=== PATIENT | male | born 1990 | race Caucasian/White ===

== ENCOUNTER 2019-08-16 18:58 | Emergency (ER) | payer OTHER, SELFPAY ==
[2019-08-16 19:52] VITALS: BP 135/91; PULSE 83; RESP 20; TEMP 36.9; O2SAT 100
--- NOTE | 2019-08-16 20:08 | ED.GENADULT ---
HPI - General Adult General Chief complaint: Abdominal Pain Stated complaint: abdominal pain/nausea/Vomiting Time Seen by Provider: 08/16/19 20:08 Source: patient Mode of arrival: ambulatory Limitations: no limitations History of Present Illness HPI narrative: 28-year-old male patient presents to the [facility] with complaints of abdominal pain for the past 2 weeks that started in the umbilical area and is gotten worse the past 3 days it has radiated to the right lower quadrant. Patient states he has had a little bit of nausea but denies any fevers, vomiting or diarrhea. Related Data Allergies Allergy/AdvReac Type Severity Reaction Status Date / Time Sulfa (Sulfonamide AdvReac Hives Verified 08/16/19 19:50 Antibiotics) Review of Systems Review of Systems: Narrative: CONSTITUTIONAL: Denies fever, chills, or sweats. EYES: Denies visual changes, redness, or discharge. ENT: Denies rhinorrhea, congestion, sore throat, or otalgia. CARDIOVASCULAR: Denies chest pain, palpitations, or edema. RESPIRATORY: Denies cough or dyspnea. GASTROINTESTINAL: Positive abdominal pain, nausea, denies vomiting, or diarrhea. GENITOURINARY: Denies dysuria or hematuria. SKIN: Denies rash or itching. MUSCULOSKELETAL: Denies back pain, joint pain, or myalgia. NEUROLOGIC: Denies headache, numbness, or weakness. PSYCHIATRIC: Denies anxiety or depression. PMFSH Comments At the time of my signature I agree with nursing past medical history, surgical, social, and family history. There is no relevant family history pertinent to the presenting complaint. Exam Narrative: Exam Narrative: GENERAL: Well-appearing, well-nourished, and in no acute distress. HEAD: Normocephalic, atraumatic. EYES: PERRLA and EOMI. ENT: Nares clear, no rhinorrhea or epistaxis. Mucous membranes moist. NECK: Supple. No lymphadenopathy CHEST: Clear to auscultation. No respiratory distress. HEART: Regular rate and rhythm. No murmur heard. Normal peripheral pulses. ABDOMEN: Soft, flat, nondistended. guarding, and right lower quadrant rebound tenderness, no rigid. Tenderness noted to right upper quadrant and right lower quadrant on palpation no pulsatilla masses. Bowel sounds present in all four quadrants. No organomegaly. Negative Herrera?s sign. No periumbicial tenderness. No Supra public tenderness or distension. Good femoral pulses bilaterally. No hernia noted. No scars or surface trauma. EXTREMITIES: Normal range of motion. No edema. SKIN: Warm, dry, no rash. NEURO: No focal deficits. Alert and oriented x3. Course Vital Signs Vital signs: Vital Signs Temperature 36.9 C 08/16/19 19:52 Pulse Rate 83 08/16/19 19:52 Respiratory Rate 20 08/16/19 19:52 Blood Pressure 135/91 H 08/16/19 19:52 Pulse Oximetry 100 08/16/19 19:52 Temperature 36.9 C 08/16/19 19:52 Pulse Rate 83 08/16/19 19:52 Respiratory Rate 20 08/16/19 19:52 Blood Pressure 135/91 H 08/16/19 19:52 Pulse Oximetry 100 08/16/19 19:52 Vital signs reviewed. The patient has been informed that they may have pre-hypertension or Hypertension based on a BP reading in the department. I recommend that the patient call the primary care provider listed on their discharge instructions or a physician of their choice this week to arrange follow up for further evaluation of possible pre-hypertension or Hypertension Transfer Transfered to: [facility]) Transportation: Other (Private vehicle with ) Transfer rationale: Right lower quadrant abdominal pain Accepting physician: Dr. muñoz Transfer comments: Called and spoke with JATINDRE Ahn at the [facility] at the [facility] emergency department gave her report on patient that we are sending over with complaints of 2 weeks of abdominal pain is gotten worse over the last 3 days does have tenderness to the right lower quadrant as well as right upper quadrant. Concerns for possible appendicitis and worsening over for further evaluation. Eduard is aware of the plan of
== END 2019-08-16 20:19 | disposition short-term general hospital (02) ==
PROVIDERS: Emergency Provider Nurse Practitioner Family
DX: R10.31 Right lower quadrant pain (principal); R10.11 Right upper quadrant pain; J44.9 Chronic obstructive pulmonary disease, unspecified; Z86.19 Personal history of other infectious and parasitic diseases
CPT/HCPCS: 99211; G0463

== ENCOUNTER 2019-08-30 19:37 | Emergency (ER) | payer OTHER, SELFPAY ==
[2019-08-30 20:18] VITALS: BP 136/81; PULSE 89; RESP 20; TEMP 36.7; O2SAT 98
--- NOTE | 2019-08-30 20:36 | ED.SKABFB ---
HPI - Skin/Abscess/Foreign Bdy General Chief complaint: Skin/Abscess/Foreign Body Stated complaint: Rash Time Seen by Provider: 08/30/19 20:36 Source: patient, family and RN notes reviewed Mode of arrival: ambulatory Limitations: no limitations History of Present Illness HPI narrative: 28-year-old male accompanied by with complaints of hives noted to torso last pm with itching starting this morning to rash. Red circular irregular shaped red rash noted which blanches noted to torso which is itchy. Patient states that he took a new allergy pill he got from [employer] prior to rash starting and he was recently started on Wellbutrin a little over a week ago. states that she has changed laundry soap recently but no other new soaps or lotions. Patient states that he has taken Benadryl for the itching, denies any shortness of breath or any difficulty with his swallowing. clear liquids for the next 8-10 hours, then MD complaint: rash Onset (ago): day(s) (2) Location: chest Severity: moderate Quality: pruritic Relieving factors: none Exacerbating factors: movement Context: new medication and other (laundry soap) Associated symptoms: denies other symptoms Treatments prior to arrival: Benadryl Related Data Allergies Allergy/AdvReac Type Severity Reaction Status Date / Time Sulfa (Sulfonamide Allergy Hives Verified 08/30/19 20:24 Antibiotics) haloperidol [From Haldol] AdvReac Unknown Verified 08/30/19 20:25 Review of Systems Review of Systems: Narrative: CONSTITUTIONAL: Denies fever, chills, or sweats. EYES: Denies visual changes, redness, or discharge. ENT: Denies rhinorrhea, congestion, sore throat, or otalgia. CARDIOVASCULAR: Denies chest pain, palpitations, or edema. RESPIRATORY: Denies cough or dyspnea. GASTROINTESTINAL: Denies abdominal pain, nausea, vomiting, or diarrhea. GENITOURINARY: Denies dysuria or hematuria. SKIN: Positive urticaria rash to torso of various sizes, does alaina. itching present to rash, no difficulty with breathing or any problems with swallowing MUSCULOSKELETAL: Denies back pain, joint pain, or myalgia. NEUROLOGIC: Denies headache, numbness, or weakness. PSYCHIATRIC: Denies anxiety or depression. All systems reviewed & are unremarkable except as noted in HPI and below PMFSH Past Medical History Medical History (Updated 09/03/19 @ 19:50 by Brittany Munoz NP) Anxiety Hypertension Reactive airway disease Staph infection Social History Social History (Updated 09/03/19 @ 19:46 by Brittany Munoz NP) Smoking status: Unknown if ever smoked Living arrangements: with family Gender identity (if verbalized by the patient): Male Comments At time of signature, agree with nursing past medical,social history. There is no relevant family history pertinent to the presenting complaint Exam Narrative: Exam Narrative: GENERAL: Well-appearing, well-nourished, and in no acute distress. HEAD: Normocephalic, atraumatic. EYES: PERRLA and EOMI. ENT: Nares clear, no rhinorrhea or epistaxis. Mucous membranes moist.TM's normal with good light reflex, throat pink with no swelling uvula midline NECK: Supple. no lymphadenopathy CHEST: Clear to auscultation. No respiratory distress.SAO2 98% on room air HEART: Regular rate and rhythm. No murmur heard. Normal peripheral pulses. ABDOMEN: Soft, non tender, non distended, normal active bowel sounds. EXTREMITIES: Normal range of motion. No edema. SKIN: Warm, dry, red circular rash to torso, rash lesions of various sizes, urticaria does akira, itchy NEURO: No focal deficits. Alert and oriented x3. Course Vital Signs Vital signs: Vital Signs Temperature 36.7 C 08/30/19 20:18 Pulse Rate 89 08/30/19 20:18 Respiratory Rate 20 08/30/19 20:18 Blood Pressure 136/81 08/30/19 20:18 Pulse Oximetry 98 08/30/19 20:18 Temperature 36.7 C 08/30/19 20:18 Pulse Rate 89 08/30/19 20:18 Respiratory Rate 20 08/30/19 20:18 Blood Pressure 136/8
== END 2019-08-30 20:48 | disposition home or self-care (01) ==
PROVIDERS: Emergency Provider Registered Nurse
DX: L50.9 Urticaria, unspecified (principal); L25.9 Unspecified contact dermatitis, unspecified cause; I10 Essential (primary) hypertension; J45.909 Unspecified asthma, uncomplicated; Z86.19 Personal history of other infectious and parasitic diseases
CPT/HCPCS: 99213; G0463

== ENCOUNTER 2019-09-10 15:07 | Emergency (ER) | payer OTHER, SELFPAY ==
[2019-09-10 15:23] VITALS: BP 123/87; PULSE 101; RESP 16; TEMP 36.1; O2SAT 100
--- NOTE | 2019-09-10 15:27 | ED.SKABFB ---
HPI - Skin/Abscess/Foreign Bdy General Stated complaint: Hives Time Seen by Provider: 09/10/19 15:27 Source: patient and RN notes reviewed History of Present Illness HPI narrative: Patient is a 29-year-old male that presents the urgent care with complaints of a rash to the abdomen and bilateral arms. Patient states that he was seen here a week and a half ago and placed on steroids and given a steroid cream. Patient states he has been using them as directed and completed the steroid. Patient states approximately 3 days after the steroid was completed, yesterday he noticed a fine rash returned. Patient states he is now that down the one drug and believes that the Wellbutrin. Patient states he started 3 weeks ago. Patient did follow-up with his PCP and he will again follow-up after this visit. Patient states has been taking Benadryl since yesterday. No other acute complaints. No acute distress noted. Patient aware of the plan of care. Related Data Allergies Allergy/AdvReac Type Severity Reaction Status Date / Time Sulfa (Sulfonamide Allergy Hives Verified 09/10/19 15:39 Antibiotics) haloperidol [From Haldol] AdvReac Unknown Verified 09/10/19 15:39 Review of Systems Review of Systems: Narrative: CONSTITUTIONAL: Denies fever, chills, or sweats. EYES: Denies visual changes, redness, or discharge. ENT: Denies rhinorrhea, congestion, sore throat, or otalgia. CARDIOVASCULAR: Denies chest pain, palpitations, or edema. RESPIRATORY: Denies cough or dyspnea. GASTROINTESTINAL: Denies abdominal pain, nausea, vomiting, or diarrhea. GENITOURINARY: Denies dysuria or hematuria. SKIN: Reports of an itchy fine rash to the abdomen and bilateral arms MUSCULOSKELETAL: Denies back pain, joint pain, or myalgia. NEUROLOGIC: Denies headache, numbness, or weakness. All other systems reviewed are negative, except as documented in HPI. [facility] Past Medical History Medical History (Updated 09/10/19 @ 15:44 by LANA Li) Anxiety Hypertension Reactive airway disease Staph infection Social History Social History (Updated 09/03/19 @ 19:46 by Brittany Munoz NP) Smoking status: Unknown if ever smoked Gender identity (if verbalized by the patient): Male Comments At the time of my signature, I reviewed and agree with the nursing past medical, surgical, social, and family history. There is no relevant family history pertinent to the patient complaint. Exam Narrative: Exam Narrative: GENERAL: This is a well-nourished, well-developed patient, in no apparent distress. HEAD: normocephalic, atraumatic. EYES: PERRL. Sclera clear/white. Vision is grossly intact. EARS: External ears normal NOSE: External nose normal with no obvious nasal discharge THROAT: Mucous membranes moist NECK: Neck supple CARDIOVASCULAR: Regular rate and rhythm without murmurs, gallops, or rubs. RESPIRATORY: Clear to auscultation. Breath sounds equal bilaterally. No wheezes, rales, or rhonchi. SKIN: Fine erythemic papular rash noted to the left abdomen and bilateral lower arms. Warm, intact with no suspicious lesions or rash, good texture and turgor. NEURO: awake, alert, and oriented to person, place and time. There were no obvious focal neurologic abnormalities. EXTREMITIES: No clubbing, cyanosis, or edema. Course Vital Signs Vital signs: Vital Signs Temperature 97 F L 09/10/19 15:23 Pulse Rate 101 H 09/10/19 15:23 Respiratory Rate 16 09/10/19 15:23 Blood Pressure 123/87 09/10/19 15:23 Pulse Oximetry 100 09/10/19 15:23 Temperature 97 F L 09/10/19 15:23 Pulse Rate 101 H 09/10/19 15:23 Respiratory Rate 16 09/10/19 15:23 Blood Pressure 123/87 09/10/19 15:23 Pulse Oximetry 100 09/10/19 15:23 Reviewed MDM - Skin/Abscess/Foreign Bdy MDM Narrative Medical decision making narrative: Advised the patient to complete steroid regimen as prescribed. In the future, when you start to have the itching rash recur start 20 mg Pepci
== END 2019-09-10 15:45 | disposition home or self-care (01) ==
PROVIDERS: Emergency Provider Nurse Practitioner Family
DX: R21 Rash and other nonspecific skin eruption (principal); I10 Essential (primary) hypertension; J45.909 Unspecified asthma, uncomplicated; Z86.19 Personal history of other infectious and parasitic diseases
CPT/HCPCS: 99213; G0463

== ENCOUNTER 2019-09-11 19:18 | Emergency (ER) | payer OTHER, SELFPAY ==
[2019-09-11 19:35] VITALS: BP 131/81; PULSE 98; RESP 18; TEMP 36.7; O2SAT 100
[2019-09-11 20:05] VITALS: BP 128/67; BP 132/86; BP 148/70; PULSE 100; PULSE 92; PULSE 95
--- NOTE | 2019-09-11 20:32 | ED.GENADULT ---
HPI - General Adult General Chief complaint: Dizziness Stated complaint: steroids from yesterday make feel bad Time Seen by Provider: 09/11/19 20:32 Source: patient and RN notes reviewed Mode of arrival: ambulatory Limitations: no limitations History of Present Illness HPI narrative: 29-year-old male presents with complaints of dizziness and irritability related to steroids prescribed for rash to abdomen and bilateral arms (present for 2 days) 1 day ago. Ariel says he had a similar episodes of dizziness and irritability related to Medro dose natalee when treated for a rash on 08/30/2019. Denies new changes in personal hygiene products or laundry detergent. No new foods. No swelling, burning, bleeding, or drainage. Denies fever, chills, headaches, weakness, fatigue, myalgia, facial swelling, or tongue swelling. Denies chest pain or dyspnea. Tolerating po intake well. Some parts of this dictation were generated by voice recognition software and may contain typographical and/or grammatical inaccuracies. Related Data Home Medications Medication Instructions Recorded Confirmed divalproex 500 mg PO Q12H 09/11/19 09/11/19 hydroxyzine pamoate 50 mg PO QID PRN 09/11/19 09/11/19 mirtazapine 15 mg PO HS 09/11/19 09/11/19 naltrexone 50 mg PO DAILY 09/11/19 09/11/19 trazodone 50 mg PO HS 09/11/19 09/11/19 Allergies Allergy/AdvReac Type Severity Reaction Status Date / Time Sulfa (Sulfonamide Allergy Hives Verified 09/11/19 19:39 Antibiotics) haloperidol [From Haldol] AdvReac Unknown Verified 09/11/19 19:39 Review of Systems Review of Systems: Narrative: CONSTITUTIONAL: Denies fever, chills, sweats. EYES: Denies visual changes, redness, discharge. ENT: Denies rhinorrhea, congestion, sore throat, otalgia. CARDIOVASCULAR: Denies chest pain, palpitations, edema. RESPIRATORY: Denies dyspnea, wheezing, cough. GASTROINTESTINAL: Denies abdominal pain, nausea, vomiting, diarrhea. GENITOURINARY: Denies dysuria, hematuria, abnormal discharge SKIN: Complains of erythema itching rash to abdomen and bilateral anterior arms. Denies drainage. MUSCULOSKELETAL: Denies acute back pain, joint pain, or myalgia. NEUROLOGIC: Denies numbness or focal weakness. Dizziness and irritability. PSYCHIATRIC: Denies anxiety or depression. All other systems reviewed & are unremarkable except as noted in HPI and below. [facility] Past Medical History Medical History (Updated 09/20/19 @ 00:01 by Niesha Santillan) Anxiety Hypertension Reactive airway disease Staph infection Surgical History Surgical History (Updated 09/19/19 @ 14:13 by LANA Ham) History of hand surgery RT hand Family History Family History (Updated 09/11/19 @ 20:40 by LANA Ham) Mother Depression Hypertension Social History Social History (Updated 09/11/19 @ 20:42 by LANA Ham) Smoking status: Heavy tobacco smoker Tobacco type: cigarettes Second hand tobacco smoke exposure: Yes Alcohol intake: never Substance use: current Substance use type: marijuana Living arrangements: with family Occupation/Education: occupation Gender identity (if verbalized by the patient): Male Comments At time of signature, agree with nurse past medical, surgical, social, and family history. There is no relevant family history pertinent to the presenting complaint. Exam Narrative: Exam Narrative: GENERAL: This is a well-nourished, well-developed patient, in no apparent distress. Talking in full sentences without deficit and ambulate with steady gait without dyspnea. HEAD: normocephalic, atraumatic. EYES: PERRL. Sclera clear/white. Vision is grossly intact. THROAT: Mucous membranes moist, posterior pharynx clear. NECK: Neck supple, non-tender without lymphadenopathy, masses or thyromegaly. CARDIOVASCULAR: Regular rate and rhythm without murmurs, gallops, or rubs. RESPIRATORY: Clear to auscultation. Breath sounds equal nai
== END 2019-09-11 20:50 | disposition home or self-care (01) ==
PROVIDERS: Emergency Provider Nurse Practitioner Family
DX: L25.9 Unspecified contact dermatitis, unspecified cause (principal); F17.210 Nicotine dependence, cigarettes, uncomplicated; I10 Essential (primary) hypertension; J45.909 Unspecified asthma, uncomplicated; Z86.19 Personal history of other infectious and parasitic diseases
CPT/HCPCS: 99213; G0463

== ENCOUNTER 2019-12-07 21:56 | Emergency (ER) | payer OTHER, SELFPAY ==
[2019-12-07 22:05] VITALS: BP 141/102; PULSE 123; RESP 20; TEMP 36.8; O2SAT 98
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
[2019-12-07 22:30] VITALS: BP 138/99; PULSE 120; RESP 20; O2SAT 100
== END 2019-12-07 22:31 ==
PROVIDERS: Emergency Provider Emergency Medicine
DX: S01.01XA Laceration without foreign body of scalp, initial encounter (principal); F41.9 Anxiety disorder, unspecified; I10 Essential (primary) hypertension; J45.909 Unspecified asthma, uncomplicated; F17.210 Nicotine dependence, cigarettes, uncomplicated; W22.8XXA Striking against or struck by other objects, initial encounter
CPT/HCPCS: 12001; 99282